=== PATIENT | female | born 1940 | race Caucasian/White ===

== ENCOUNTER 2016-11-14 09:25 | Emergency (ER) | payer MEDICARE, OTHER ==
[~2016-11-14] VITALS: Ht 167.6 cm; Wt 78.0 kg
[~2016-11-14 09:25] MED LIST: ALBU8.5H3 INH; AMLO10TA4 PO; AMLO5TAB2 PO; AMOX1TAB64 PO; APIX5TAB PO; ASPI-621 PO; ASPI325T4 PO; ATOR80TA75 PO; AZIT500T PO; AZIT500T77 PO; Amiodarone Hcl PO; Aspirin NG; CEFD300C37 PO; CEPH-375 PO; DOCU-30 PO; DOXA1TAB PO; FAMO20VI3 IV; FERR324T18 PO; FERR325T20 PO; FURO20TA3 PO; HYDR-3138 PO; LACT1CAP24 PO; LEVO125T PO; LEVO137T3 PO; LEVO200T5 PO; LEVO500T8 PO; LISI-167 PO; LISI-170 PO; METO10TA2 PO; METO25TA35 PO; METO25TA91 PO; METO50TA82 PO; METO5TAB2 PO; METR500T PO; METR500T4 PO; MORP30CA15 PO; MORP30TA3 PO; MORP4VIA IVPush; MORPHINE PO; OMEP-110 PO; OMEP20TA62 PO; ONDA4TAB13 PO; ONDA4TAB13 SL; OXYC-229 PO; OXYC-302 PO; OXYC10TA6 PO; OXYC5CAP4 PO; PANT40TA3 PO; PIPE3.375 IV; POLY17PO5 PO; RABE20TA5 PO; SUCR1ORA11 PO; SUCR1ORA2 PO; TAMS-11 PO; TEMA15CA6 PO; TEMA30CA6 PO; VANC1FRO2 IV; ZOLP-413 PO; ZOLP10TA PO; ZOLP10TA5 PO
[2016-11-14] MEDS ORDERED: SODIUM CHLORIDE FLUSH 10ML SYR IVF ONE (10:00)
[2016-11-14] MEDS ORDERED: MELO-184 PEG (10:19)
[2016-11-14] MEDS ORDERED: AMIO200T42 PO (10:19)
[2016-11-14] MEDS ORDERED: TRAZ50TA18 PEG (10:19)
[2016-11-14] MEDS ORDERED: LEVO100T5 PEG (10:19)
[2016-11-14] MEDS ORDERED: LACT-90 GT (10:19)
[2016-11-14] MEDS ORDERED: ATOR80TA75 PEG (10:33)
[2016-11-14] MEDS ORDERED: AMOX400S16 PEG (10:33)
[2016-11-14] MEDS ORDERED: FERR220S13 PEG (10:33)
[2016-11-14] MEDS ORDERED: LACT1CAP35 PEG (10:33)
[2016-11-14] MEDS ORDERED: IPRA3AMP INH (10:33)
[2016-11-14] MEDS ORDERED: AMLO2.5T PO (10:33)
[2016-11-14] MEDS ORDERED: OXYC-302 PO (10:33)
[2016-11-14] MEDS ORDERED: OXYC-302 PEG (10:33)
[2016-11-14] MEDS ORDERED: ASPI-13 PEG (10:33)
[2016-11-14] MEDS ORDERED: ONDA-39 PEG (10:33)
[2016-11-14] MEDS ORDERED: AMIO200T42 PEG (10:33)
[2016-11-14] MEDS ORDERED: AMAN50SY PEG (10:33)
[2016-11-14] MEDS ORDERED: FAMO20TA7 PEG (10:33)
[2016-11-14] MEDS ORDERED: METO50TA82 PEG (10:33)
[2016-11-14] MEDS ORDERED: ALPR1TAB PEG (10:33)
[2016-11-14 10:36] LABS: ASPARTATE AMINO TRANSFERASE 27 U/L (15-37); BLOOD UREA NITROGEN 13 mg/dL (7-18)
[2016-11-14 13:44] VITALS: BP 163/65
== END 2016-11-14 14:47 | disposition short-term general hospital (02) ==
LOC: ED 11:27
DX: R56.9 Unspecified convulsions (principal); K21.9 Gastro-esophageal reflux disease without esophagitis; I10 Essential (primary) hypertension; D64.9 Anemia, unspecified; I48.91 Unspecified atrial fibrillation; Z88.1 Allergy status to other antibiotic agents; Z88.8 Allergy status to other drugs, medicaments and biological substances
CPT/HCPCS: 36415; 70450; 71010; 80053; 85025; 93005; 99285

== ENCOUNTER 2017-01-06 19:00 | Inpatient (IN) | payer MEDICARE, OTHER ==
[~2017-01-06] VITALS: Ht 167.6 cm; Wt 83.2 kg
[~2017-01-06 19:00] MED LIST changes: -ALBU8.5H3 INH; +ALBU8.5H8 INH; +ALPR1TAB PEG; +AMAN50SY PEG; +AMIO200T42 PEG; +AMIO200T42 PO; +AMLO2.5T PO; +AMOX400S16 PEG; +ASPI-13 PEG; +ASPI325T17 PO; -ASPI325T4 PO; +ATOR-2 PEG; +ATOR-2 PO; -ATOR80TA75 PO; +AZIT500T5 PO; -AZIT500T77 PO; +DOCU-131 PO; -DOCU-30 PO; +FAMO20TA7 PEG; +FERR220S13 PEG; +FERR325T18 PO; -FERR325T20 PO; -HYDR-3138 PO; +HYDR-3237 PO; +IPRA3AMP INH; +LACT-90 GT; +LACT1CAP35 PEG; +LEVO100T5 PEG; +MELO15TA24 PEG; +METO50TA82 PEG; -METR500T4 PO; +METR500T8 PO; +ONDA4TAB12 PEG; -OXYC-229 PO; +OXYC-302 PEG; +OXYC-307 PO; +OXYC5CAP2 PO; -OXYC5CAP4 PO; +RABE20TA18 PO; -RABE20TA5 PO; -SUCR1ORA2 PO; +SUCR1ORA5 PO; +TRAZ50TA18 PEG
[2017-01-06] MEDS ORDERED: morphine SULFATE 10 MG/ML, 1ML IVPush ONE (19:30)
[2017-01-06] MEDS ORDERED: MORPHINE SULFATE 4 MG/ML, 1ML ONE ×2 (19:41→21:30)
[2017-01-06 19:43] LABS: HEMOGLOBIN 9.5 g/dL (11.7-16.4)
[2017-01-06 19:51] LABS: BLOOD UREA NITROGEN 27 mg/dL (7-18)
[2017-01-06] MEDS ORDERED: MORPHINE SULFATE 4 MG/ML, 1ML IVPush ONE (21:30)
[2017-01-06] MEDS ORDERED: POLYETHYLENE GLYCOL 17 GM PACKET PO PRN (22:30)
[2017-01-06] MEDS ORDERED: ONDANSETRON 2MG/ML, 2ML IVPush PRN (22:30)
[2017-01-06] MEDS ORDERED: ENALAPRILAT 1.25 MG/ML, 2ML IVPush PRN (22:30)
[2017-01-06 23:48] VITALS: BP 156/80
[2017-01-07] MEDS: morphine SULFATE 10 MG/ML, 1ML IVPush PRN ×8 (00:43→23:27)
[2017-01-07] MEDS: HEPARIN 5,000 UNITS/ML, 1ML SQ SCH ×3 (02:11→17:55)
[2017-01-07 02:19] VITALS: BP 162/80
[2017-01-07 05:36] LABS: HEMATOCRIT 31.3 % (34.6-47.8); HEMOGLOBIN 10.2 g/dL (11.7-16.4); WHITE BLOOD COUNT 4.3 x10^3/uL (3.4-10)
[2017-01-07 05:55] LABS: BLOOD UREA NITROGEN 21 mg/dL (7-18)
[2017-01-07 08:05] VITALS: BP 153/83
[2017-01-07] MEDS: LORazepam 2 MG/ML, 1ML IVPush PRN ×2 (10:41→19:06)
[2017-01-07 14:30] VITALS: BP 143/83
[2017-01-07] MEDS: FERROUS SULFATE 325 MG TABLET PO SCH (17:00)
[2017-01-07 18:40] VITALS: BP 167/84
[2017-01-07 19:25] VITALS: BP 159/85
[2017-01-07] MEDS: TRAZODONE 50MG TABLET PEG SCH (20:35)
[2017-01-07] MEDS: ATORVASTATIN 80 MG TABLET PEG SCH (20:35)
[2017-01-07] MEDS: METOPROLOL TARTRATE 50 MG TABLET PEG SCH (20:36)
[2017-01-07] MEDS: FAMOTIDINE 20 MG TABLET PEG SCH (20:36)
[2017-01-07] MEDS: AMANTADINE 10 MG/ML PEG SCH (20:36)
[2017-01-08] MEDS: HEPARIN 5,000 UNITS/ML, 1ML SQ SCH ×3 (01:33→16:49)
[2017-01-08] MEDS: morphine SULFATE 10 MG/ML, 1ML IVPush PRN ×3 (02:27→09:01)
[2017-01-08 04:15] VITALS: BP 156/71
[2017-01-08] MEDS: LORazepam 2 MG/ML, 1ML IVPush PRN ×3 (04:22→21:15)
[2017-01-08 07:27] VITALS: BP 163/90
[2017-01-08] MEDS ORDERED: ASPIRIN 325 MG TABLET EC PO SCH (09:00)
[2017-01-08] MEDS: AMANTADINE 10 MG/ML PEG SCH ×2 (09:01→20:17)
[2017-01-08] MEDS: AMIODARONE 200 MG TABLET PEG SCH (09:02)
[2017-01-08] MEDS: METOPROLOL TARTRATE 50 MG TABLET PEG SCH ×2 (09:02→20:17)
[2017-01-08] MEDS: FERROUS SULFATE 325 MG TABLET PO SCH ×3 (09:02→16:12)
[2017-01-08] MEDS: LEVOTHYROXINE 100 MCG TABLET PEG SCH (09:02)
[2017-01-08] MEDS: AMLODIPINE 2.5 MG TABLET PO SCH (09:02)
[2017-01-08] MEDS: FAMOTIDINE 20 MG TABLET PEG SCH ×2 (09:03→20:17)
[2017-01-08] MEDS: ASPIRIN 325 MG TABLET EC PO SCH (09:23)
[2017-01-08 13:30] VITALS: BP 160/74
[2017-01-08] MEDS: OXYcodone/APAP 10/325MG TABLET PO PRN ×2 (16:12→20:17)
[2017-01-08 19:40] VITALS: BP 149/77
[2017-01-08] MEDS: ATORVASTATIN 80 MG TABLET PEG SCH (20:17)
[2017-01-08] MEDS: TRAZODONE 50MG TABLET PEG SCH (20:17)
[2017-01-09] MEDS: OXYcodone/APAP 10/325MG TABLET PO PRN ×3 (00:27→09:46)
[2017-01-09] MEDS: HEPARIN 5,000 UNITS/ML, 1ML SQ SCH ×2 (00:31→09:35)
[2017-01-09 02:10] VITALS: BP 111/44
[2017-01-09 06:13] LABS: HEMATOCRIT 29.6 % (34.6-47.8); HEMOGLOBIN 9.8 g/dL (11.7-16.4); WHITE BLOOD COUNT 3.7 x10^3/uL (3.4-10)
[2017-01-09 06:23] LABS: ASPARTATE AMINO TRANSFERASE 14 U/L (15-37); BLOOD UREA NITROGEN 18 mg/dL (7-18)
[2017-01-09 08:01] VITALS: BP 136/64
[2017-01-09] MEDS: FERROUS SULFATE 325 MG TABLET PO SCH (09:33)
[2017-01-09] MEDS: FAMOTIDINE 20 MG TABLET PEG SCH (09:33)
[2017-01-09] MEDS: AMLODIPINE 2.5 MG TABLET PO SCH (09:34)
[2017-01-09] MEDS: METOPROLOL TARTRATE 50 MG TABLET PEG SCH (09:34)
[2017-01-09] MEDS: AMIODARONE 200 MG TABLET PEG SCH (09:34)
[2017-01-09] MEDS: ASPIRIN 325 MG TABLET EC PO SCH (09:34)
[2017-01-09] MEDS: AMANTADINE 10 MG/ML PEG SCH (09:46)
[2017-01-09] MEDS: LEVOTHYROXINE 100 MCG TABLET PEG SCH (09:46)
[2017-01-09] MEDS ORDERED: OXYC1TAB9 PO (10:17)
[2017-01-09] MEDS ORDERED: MORP15TA3 PO (10:17)
[2017-01-09] MEDS: LORazepam 2 MG/ML, 1ML IVPush PRN (10:39)
[2017-01-09 13:08] VITALS: BP 139/61
== END 2017-01-09 13:17 | DRG 533 ==
LOC: ED 19:08 → EDIP 22:17 → 4NOR 23:35
PROVIDERS: ADMIT Family Medicine; ATTEND Family Medicine
DX: S72.491A Other fracture of lower end of right femur, initial encounter for closed fracture (principal); R53.2 Functional quadriplegia; E43 Unspecified severe protein-calorie malnutrition; D68.69 Other thrombophilia; K50.90 Crohn's disease, unspecified, without complications; I11.9 Hypertensive heart disease without heart failure; I69.351 Hemiplegia and hemiparesis following cerebral infarction affecting right dominant side; I48.0 Paroxysmal atrial fibrillation; Z68.1 Body mass index [BMI] 19.9 or less, adult; W05.0XXA Fall from non-moving wheelchair, initial encounter; K22.2 Esophageal obstruction; D50.9 Iron deficiency anemia, unspecified; E03.9 Hypothyroidism, unspecified; E78.5 Hyperlipidemia, unspecified; I25.10 Atherosclerotic heart disease of native coronary artery without angina pectoris; I73.9 Peripheral vascular disease, unspecified; K21.9 Gastro-esophageal reflux disease without esophagitis; M19.90 Unspecified osteoarthritis, unspecified site; Z96.641 Presence of right artificial hip joint; M85.80 Other specified disorders of bone density and structure, unspecified site; Z93.1 Gastrostomy status; Z90.49 Acquired absence of other specified parts of digestive tract; Z88.8 Allergy status to other drugs, medicaments and biological substances; Z88.2 Allergy status to sulfonamides; Z90.89 Acquired absence of other organs; Z91.012 Allergy to eggs; Z91.018 Allergy to other foods; Y93.89 Activity, other specified; Y92.098 Other place in other non-institutional residence as the place of occurrence of the external cause; Y99.8 Other external cause status; I69.320 Aphasia following cerebral infarction
CPT/HCPCS: 36415; 72170; 80048; 80053; 85025; 85610; 85730; 96374; 96375; J1644; J2060; J2270

== ENCOUNTER 2017-01-11 19:21 | Inpatient (IN) | payer MEDICARE, OTHER ==
[~2017-01-11] VITALS: Ht 170.2 cm; Wt 88.8 kg
[~2017-01-11 19:21] MED LIST changes: +MORP15TA3 PO; +OXYC1TAB9 PO
[2017-01-11] MEDS ORDERED: SODIUM CHLORIDE FLUSH 10ML SYR IVF ONE (19:30)
[2017-01-11] MEDS ORDERED: PANTOPRAZOLE 40 MG IV IVPush ONE (19:30)
[2017-01-11] MEDS ORDERED: PLEASE ENTER HEIGHT AND WEIGHT MC SCH (19:30)
[2017-01-11] MEDS ORDERED: SODIUM CHLORIDE 0.9% 1,000ML IVBOLUS ONE ×3 (19:30→22:00)
[2017-01-11] MEDS ORDERED: PROPOFOL 100 ML IV PRN (20:00)
[2017-01-11] MEDS ORDERED: FENTANYL PF 2,500 MCG in SODIUM CHLORIDE 0.9% 200 ML IV PRN ×2 (20:00→20:30)
[2017-01-11] MEDS ORDERED: SUCCINYLCHOLINE 20 MG/ML, 10ML IVPush ONE (20:00)
[2017-01-11] MEDS ORDERED: ETOMIDATE 20 MG/10 ML IVPush ONE (20:00)
[2017-01-11 20:01] LABS: ASPARTATE AMINO TRANSFERASE 33 U/L (15-37); BLOOD UREA NITROGEN 38 mg/dL (7-18)
[2017-01-11 20:09] LABS: DIFF TOTAL CELLS COUNTED 100 CELL DIFF; HEMATOCRIT 40.4 % (34.6-47.8); HEMOGLOBIN 13.1 g/dL (11.7-16.4); WHITE BLOOD COUNT 5.9 x10^3/uL (3.4-10)
[2017-01-11 20:13] LABS: VERIFY COUNTS? YES
[2017-01-11 20:15] LABS: ANISOCYTOSIS 1+
[2017-01-11] MEDS ORDERED: MIDAZOLAM 1 MG/ML, 5ML ONE (20:19)
[2017-01-11] MEDS ORDERED: FENTANYL PF 100 MCG/2ML ONE (20:19)
[2017-01-11] MEDS: FENTANYL PF 100 MCG/2ML IVPush PRN ×2 (20:24→23:00)
[2017-01-11] MEDS: NOREPINEPHRINE 4 MG in SODIUM CHLORIDE 0.9% 246 ML IV PRN ×2 (20:32→23:54)
[2017-01-11] MEDS ORDERED: PIPERACILLIN/TAZO/PMX 3.375GM 50 ML IV ONE (21:00)
[2017-01-11] MEDS ORDERED: VANCOMYCIN 1,700 MG in SODIUM CHLORIDE 0.9% 250 ML IV ONE (21:00)
[2017-01-11] MEDS ORDERED: VANCOMYCIN PER PHARMACY MC PRN ×2 (21:00→22:00)
[2017-01-11] MEDS ORDERED: PHARMACOKINETIC CONSULTATION MC ONE ×2 (21:00→23:45)
[2017-01-11] MEDS ORDERED: PANTOPRAZOLE 40 MG IV ONE (21:11)
[2017-01-11 21:19] LABS: IS PT STATUS REG ER OR PRE ER? YES
[2017-01-11 21:27] LABS: ABG COLLECTION SITE RIGHT BRACHIAL
[2017-01-11 21:38] LABS: HEMATOCRIT 34.3 % (34.6-47.8); HEMOGLOBIN 11.2 g/dL (11.7-16.4)
[2017-01-11] MEDS ORDERED: NOREPINEPHRINE 4 MG in SODIUM CHLORIDE 0.9% 246 ML IV PRN ×2 (21:39→22:05)
[2017-01-11] MEDS ORDERED: PHARMACY MAY ADJ FOR RENAL FX MC PRN ×2 (22:00)
[2017-01-11] MEDS ORDERED: PANTOPRAZOLE 40 MG IV IV SCH (22:00)
[2017-01-11] MEDS ORDERED: SODIUM CHLORIDE 0.9%, 500ML IVBOLUS PRN ×2 (22:00)
[2017-01-11] MEDS ORDERED: SENNA/DOCUSATE TABLET NG PRN (22:30)
[2017-01-11] MEDS ORDERED: LIDOCAINE-MPF 1%, 2ML ENDO PRN (22:30)
[2017-01-11] MEDS ORDERED: SENNOSIDES 8.8 MG/5 ML ORAL SOL NG PRN (22:30)
[2017-01-11] MEDS ORDERED: SODIUM CHLORIDE 0.9%, 500ML IVBOLUS ONE (22:30)
[2017-01-11] MEDS ORDERED: BISACODYL 10 MG SUPP PR PRN (22:30)
[2017-01-11] MEDS ORDERED: LACTULOSE 20 GM/30 ML UDC NG PRN (22:30)
[2017-01-11 23:30] VITALS: BP 84/46
[2017-01-11] MEDS: ACETAMINOPHEN 650 MG SUPP PR PRN (23:39)
[2017-01-11] MEDS ORDERED: PHARMACOKINETIC MONITORING MC PRN (23:45)
[2017-01-11] MEDS: PIPERACILLIN/TAZO 2.25 GM in SODIUM CHLORIDE 0.9% 50 ML IV SCH (23:51)
[2017-01-11] MEDS: SODIUM CHLORIDE 0.9% 1,000 ML IV SCH (23:52)
[2017-01-11 23:58] LABS: HEMATOCRIT 38.1 % (34.6-47.8); HEMOGLOBIN 12.2 g/dL (11.7-16.4)
[2017-01-12] MEDS ORDERED: PANTOPRAZOLE 80 MG in SODIUM CHLORIDE 0.9% 50 ML IV ONE (00:30)
[2017-01-12] MEDS: SODIUM CHLORIDE 0.9% 1,000 ML IV SCH ×5 (00:37→21:16)
[2017-01-12] MEDS: PANTOPRAZOLE 80 MG in SODIUM CHLORIDE 0.9% 100 ML IV SCH ×3 (00:39→21:11)
[2017-01-12] MEDS: PROPOFOL 100 ML IV PRN ×3 (00:56→22:17)
[2017-01-12 01:16] LABS: WHITE BLOOD COUNT 1.8 x10^3/uL (3.4-10)
[2017-01-12 01:17] LABS: DIFF TOTAL CELLS COUNTED 100 CELL DIFF
[2017-01-12 01:27] LABS: ANISOCYTOSIS 1+; VERIFY COUNTS? YES
[2017-01-12 01:28] LABS: POLYCHROMASIA 1+
[2017-01-12 01:29] LABS: LARGE PLATELETS 1+; OVALOCYTES 1+
[2017-01-12 02:00] VITALS: BP 84/46
[2017-01-12] MEDS ORDERED: SODIUM CHLORIDE 0.9% 1,000ML IVBOLUS ONE ×2 (02:00→10:30)
[2017-01-12] MEDS ORDERED: VASOPRESSIN 100 UNIT in SODIUM CHLORIDE 0.9% 495 ML IV PRN (02:00)
[2017-01-12 04:28] LABS: ABG COLLECTION SITE RIGHT RADIAL
[2017-01-12 04:29] LABS: COLLATERAL CIRCULATION TESTING NORMAL
[2017-01-12 04:30] VITALS: BP 129/52
[2017-01-12 05:17] LABS: BLOOD UREA NITROGEN 37 mg/dL (7-18)
[2017-01-12 05:48] LABS: HEMATOCRIT 31.5 % (34.6-47.8); HEMOGLOBIN 10.3 g/dL (11.7-16.4)
[2017-01-12 05:50] LABS: WHITE BLOOD COUNT 1.8 x10^3/uL (3.4-10)
[2017-01-12 05:51] LABS: DIFF TOTAL CELLS COUNTED 100 CELL DIFF
[2017-01-12] MEDS: PIPERACILLIN/TAZO 2.25 GM in SODIUM CHLORIDE 0.9% 50 ML IV SCH ×3 (05:55→22:17)
[2017-01-12 06:02] LABS: ANISOCYTOSIS 1+; OVALOCYTES 1+; POLYCHROMASIA 1+; VERIFY COUNTS? YES
[2017-01-12 06:04] LABS: LARGE PLATELETS 1+
[2017-01-12] MEDS ORDERED: NOREPINEPHRINE 8 MG in SODIUM CHLORIDE 0.9% 242 ML IV PRN (07:00)
[2017-01-12] MEDS ORDERED: PROPOFOL 10 MG/ML, 20ML ONE (07:35)
[2017-01-12] MEDS ORDERED: ETOMIDATE 40 MG/20 ML ONE (07:35)
[2017-01-12] MEDS ORDERED: MIDAZOLAM 1 MG/ML, 5ML ONE (07:35)
[2017-01-12] MEDS ORDERED: MAGNESIUM SULFATE PMX 4GM/100M 100 ML IV ONE (08:00)
[2017-01-12] MEDS ORDERED: POTASSIUM CHLORIDE 10% 40 MEQ/30 ML UDC PO ONE (08:00)
[2017-01-12] MEDS ORDERED: VANCOMYCIN 1,700 MG in SODIUM CHLORIDE 0.9% 250 ML IV SCH ×2 (10:00→22:00)
[2017-01-12 10:25] LABS: ABG COLLECTION SITE RIGHT RADIAL; COLLATERAL CIRCULATION TESTING NORMAL
[2017-01-12] MEDS: NOREPINEPHRINE 16 MG in SODIUM CHLORIDE 0.9% 484 ML IV PRN ×2 (10:51→23:41)
[2017-01-12 11:47] LABS: HEMATOCRIT 32.8 % (34.6-47.8); HEMOGLOBIN 10.6 g/dL (11.7-16.4); WHITE BLOOD COUNT 2.4 x10^3/uL (3.4-10)
[2017-01-12] MEDS: ACETAMINOPHEN 650 MG SUPP PR PRN (20:15)
[2017-01-12 20:36] LABS: HEMATOCRIT 31.3 % (34.6-47.8); HEMOGLOBIN 10.1 g/dL (11.7-16.4); WHITE BLOOD COUNT 4.3 x10^3/uL (3.4-10)
[2017-01-12] MEDS: PHENYLEPHRINE 20 MG in SODIUM CHLORIDE 0.9% 248 ML IV PRN (21:21)
[2017-01-12] MEDS ORDERED: VANCOMYCIN 1,500 MG in SODIUM CHLORIDE 0.9% 250 ML IV SCH (22:00)
[2017-01-13] MEDS: SODIUM CHLORIDE 0.9% 1,000 ML IV SCH (00:43)
[2017-01-13] MEDS: PHENYLEPHRINE 20 MG in SODIUM CHLORIDE 0.9% 248 ML IV PRN ×2 (01:56→06:30)
[2017-01-13 04:00] VITALS: BP 112/44
[2017-01-13 04:01] LABS: HEMATOCRIT 31.2 % (34.6-47.8); HEMOGLOBIN 10.2 g/dL (11.7-16.4); WHITE BLOOD COUNT 7.3 x10^3/uL (3.4-10)
[2017-01-13 04:02] LABS: BLOOD UREA NITROGEN 48 mg/dL (7-18)
[2017-01-13 04:17] LABS: DIFF TOTAL CELLS COUNTED 100 CELL DIFF
[2017-01-13] MEDS ORDERED: DEXTROSE 50%, 50ML VIAL ONE (04:19)
[2017-01-13 04:21] LABS: ANISOCYTOSIS 1+; POLYCHROMASIA 1+; VERIFY COUNTS? YES
[2017-01-13 04:22] LABS: ECHINOCYTES 1+
[2017-01-13] MEDS ORDERED: DEXTROSE 50%, 50ML VIAL IVPush ONE ×2 (04:30→06:30)
[2017-01-13 04:44] LABS: ABG COLLECTION SITE LEFT BRACHIAL
[2017-01-13] MEDS: D5%-0.9% NACL 1,000 ML IV SCH ×2 (05:00→12:30)
[2017-01-13] MEDS: SODIUM ACETATE 150 MEQ in DEXTROSE 5% 1,000 ML IV SCH ×3 (05:23→20:04)
[2017-01-13] MEDS: PIPERACILLIN/TAZO 2.25 GM in SODIUM CHLORIDE 0.9% 50 ML IV SCH ×2 (06:32→15:42)
[2017-01-13] MEDS: PROPOFOL 100 ML IV PRN ×2 (07:57→20:42)
[2017-01-13] MEDS: NOREPINEPHRINE 16 MG in SODIUM CHLORIDE 0.9% 484 ML IV PRN (08:34)
[2017-01-13] MEDS: PANTOPRAZOLE 80 MG in SODIUM CHLORIDE 0.9% 100 ML IV SCH ×2 (08:52→19:29)
[2017-01-13] MEDS ORDERED: OCULAR LUBRICANT OPHTH OINT 3.5 GM OP PRN (09:30)
[2017-01-13] MEDS ORDERED: PHENYLEPHRINE IV PRN (10:30)
[2017-01-13] MEDS ORDERED: SODIUM CHLORIDE 0.9% IV PRN (10:30)
[2017-01-13] MEDS ORDERED: NOREPINEPHRINE 16 MG in SODIUM CHLORIDE 0.9% 484 ML IV PRN (16:00)
[2017-01-13] MEDS ORDERED: VASOPRESSIN 100 UNIT in SODIUM CHLORIDE 0.9% 495 ML IV PRN (16:00)
[2017-01-13] MEDS ORDERED: PIPERACILLIN/TAZO/PMX 2.25GM 50 ML IV SCH (23:00)
[2017-01-14] MEDS ORDERED: EPINEPHRINE SYRINGE 0.1 MG/ML, 10ML ONE ×2
[2017-01-14] MEDS ORDERED: SODIUM BICARB 8.4%, 50ML SYRINGE ONE
[2017-01-14] MEDS: D5%-0.9% NACL 1,000 ML IV SCH ×2 (01:00→03:08)
[2017-01-14] MEDS: PROPOFOL 100 ML IV PRN (02:56)
[2017-01-14] MEDS ORDERED: DEXTROSE 50%, 50ML VIAL ONE ×2 (03:02→06:04)
[2017-01-14 05:07] LABS: HEMATOCRIT 28.5 % (34.6-47.8); HEMOGLOBIN 9.3 g/dL (11.7-16.4); WHITE BLOOD COUNT 13.3 x10^3/uL (3.4-10)
[2017-01-14] MEDS: SODIUM ACETATE 150 MEQ in DEXTROSE 5% 1,000 ML IV SCH (05:43)
[2017-01-14] MEDS: PANTOPRAZOLE 80 MG in SODIUM CHLORIDE 0.9% 100 ML IV SCH (05:43)
[2017-01-14 06:03] LABS: DIFF TOTAL CELLS COUNTED 100 CELL DIFF
[2017-01-14 06:06] LABS: ANISOCYTOSIS 1+; ECHINOCYTES 1+; POLYCHROMASIA 1+; VERIFY COUNTS? YES
[2017-01-14 06:08] LABS: OVALOCYTES 1+
[2017-01-14 06:24] LABS: BLOOD UREA NITROGEN 54 mg/dL (7-18)
[2017-01-14] MEDS ORDERED: CALCIUM CHLORIDE 27.2 MEQ in SODIUM CHLORIDE 0.9% 100 ML IV STA (06:33)
[2017-01-14 06:53] LABS: ABG COLLECTION SITE RIGHT RADIAL; COLLATERAL CIRCULATION TESTING NORMAL
[2017-01-14] MEDS ORDERED: FILTER 0.22 MICRON IV PRN (07:00)
[2017-01-14] MEDS ORDERED: AMIODARONE 150 MG in DEXTROSE 5% 100 ML IV ONE (07:00)
[2017-01-14] MEDS ORDERED: AMIODARONE 900 MG in DEXTROSE 5% 482 ML IV PRN (07:00)
[2017-01-14] MEDS ORDERED: DEXTROSE 50%, 50ML SYRINGE IVPush ONE ×2 (07:30)
[2017-01-14] MEDS ORDERED: DEXTROSE 50%, 50ML VIAL IVPush ONE (08:00)
[2017-01-14] MEDS ORDERED: CODE BLUE RESPONSE XX ONE (08:00)
== END 2017-01-14 07:38 | disposition expired | DRG 871 ==
LOC: ED 19:49 → EDIP 20:52 → CCU 22:40
PROVIDERS: ADMIT Hospitalist; ATTEND Hospitalist
PROC: 0BH17EZ Insertion of Endotracheal Airway into Trachea, Via Natural or Artificial Opening (ICD-10-PCS; principal; 2017-01-11)
PROC: 5A1945Z Respiratory Ventilation, 24-96 Consecutive Hours (ICD-10-PCS; 2017-01-11)
PROC: 02HV33Z Insertion of Infusion Device into Superior Vena Cava, Percutaneous Approach (ICD-10-PCS; 2017-01-11)
PROC: 0D9670Z Drainage of Stomach with Drainage Device, Via Natural or Artificial Opening (ICD-10-PCS; 2017-01-11)
PROC: 0T9B70Z Drainage of Bladder with Drainage Device, Via Natural or Artificial Opening (ICD-10-PCS; 2017-01-12)
PROC: 5A12012 Performance of Cardiac Output, Single, Manual (ICD-10-PCS; 2017-01-14)
DX: A41.9 Sepsis, unspecified organism (principal); J96.01 Acute respiratory failure with hypoxia; N17.0 Acute kidney failure with tubular necrosis; J69.0 Pneumonitis due to inhalation of food and vomit; R65.21 Severe sepsis with septic shock; E87.2 Acidosis; E43 Unspecified severe protein-calorie malnutrition; D68.69 Other thrombophilia; K92.0 Hematemesis; K50.911 Crohn's disease, unspecified, with rectal bleeding; I69.351 Hemiplegia and hemiparesis following cerebral infarction affecting right dominant side; Z99.11 Dependence on respirator [ventilator] status; K21.9 Gastro-esophageal reflux disease without esophagitis; E87.6 Hypokalemia; F41.9 Anxiety disorder, unspecified; I46.9 Cardiac arrest, cause unspecified; I11.9 Hypertensive heart disease without heart failure; D63.8 Anemia in other chronic diseases classified elsewhere; E03.9 Hypothyroidism, unspecified; R13.10 Dysphagia, unspecified; I25.10 Atherosclerotic heart disease of native coronary artery without angina pectoris; I48.0 Paroxysmal atrial fibrillation; I73.9 Peripheral vascular disease, unspecified; K44.9 Diaphragmatic hernia without obstruction or gangrene; Y95 Nosocomial condition; Z96.641 Presence of right artificial hip joint; I69.320 Aphasia following cerebral infarction; Z93.1 Gastrostomy status; Z87.11 Personal history of peptic ulcer disease; Z87.19 Personal history of other diseases of the digestive system; Z91.14 Patient's other noncompliance with medication regimen; Z91.19 Patient's noncompliance with other medical treatment and regimen; Z88.2 Allergy status to sulfonamides; Z88.8 Allergy status to other drugs, medicaments and biological substances; Z91.012 Allergy to eggs; Z91.018 Allergy to other foods; Z79.899 Other long term (current) drug therapy; Z90.49 Acquired absence of other specified parts of digestive tract; S72.401D Unspecified fracture of lower end of right femur, subsequent encounter for closed fracture with routine healing; W18.39XD Other fall on same level, subsequent encounter
CPT/HCPCS: 31500; 36415; 36556; 36600; 71010; 80048; 80053; 80076; 80202; 81001; 82533; 82803; 82805; 82962; 83605; 83690; 83735; 84145; 84478; 84484; 85014; 85018; 85025; 85027; 85610; 85730; 86850; 86870; 86900; 86902; 86922; 86923; 87040; 87070; 87077; 87081; 87086; 87186; 87205; 93005; 93306; 94002; 94003; 96374; 96375; 99292; J2250; J2543; J2704; J3010; J3370; J7042; J7070; C9113; J0282; J0330; J2370; J3475; J7030; J7040; J7050; J7060